=== PATIENT | male | born 1990 | race Two or more races ===

== ENCOUNTER 2024-09-08 19:22 | Emergency (ER) | payer OTHER ==
[~2024-09-08] VITALS: Ht 193 cm; Wt 113.4 kg
[~2024-09-08 19:22] MED LIST: CIPRO500 MG PO; FLAGYL500MG PO
[2024-09-08] MEDS ORDERED: ACETAMINOPHEN 500 MG GEL..CAP PO ONE ×2 (22:15→22:20)
[2024-09-08] MEDS ORDERED: ORPHENADRINE CITRATE 30 MG/ML AMPUL IM ONE (22:15)
[2024-09-08] MEDS ORDERED: ORPHENADRINE CITRATE 30 MG/ML AMPUL ONE (22:20)
[2024-09-09 01:22] LABS: PH,URINE 6.5; URINE BILIRRUBIN NEGATIVE (NEGATIVE); URINE BLOOD NEGATIVE; URINE GLUCOSE NEGATIVE (NEGATIVE); URINE KETONE NEGATIVE (NEGATIVE); URINE LEUKOCYTE NEGATIVE; URINE NITRATE NEGATIVE; URINE PROTEIN NEGATIVE (NEGATIVE); URINE UROBILINOGEN 0.2 E.U./dl
[2024-09-09 01:34] LABS: URINE APPEARANCE CLEAR; URINE COLOR YELLOW
[2024-09-09 01:35] LABS: URINE BACTERIA FEW; URINE EPITHELIAL CELLS 0-4 /HPF; URINE MUCUS SCANT; URINE RBC 0-3 /HPF; URINE WBC 0-2 /hpf
[2024-09-09] MEDS ORDERED: METAXALONE800 MG PO (01:47)
[2024-09-09] MEDS ORDERED: TYLENOL ARTHRI650 MG PO (01:47)
== END 2024-09-09 01:56 | disposition home or self-care (01) ==
LOC: ER 19:22
PROVIDERS: General Practice
DX: M54.50 Low back pain, unspecified (principal); Z88.6 Allergy status to analgesic agent